=== PATIENT | male | born 1935 | race African-American/Black ===

== ENCOUNTER → 2016-06-29 | Outpatient (CLI) | payer MEDICARE, MEDICAID ==
[~2016-06-29] MED LIST: ALBU18HF2 IH; ALBU6.7H INH; AMLO10TA80 PO; ATOR40TA70 PO; BENA10TA3 PO; DULO60CA44 PO; ESOM40CA PO; FLUT1DIS IH; FURO20TA4 PO; IBUP-1510 PO; KLOR CON; LATA2.5D2 EACHEYE; MONT10TA24 PO; TAMS0.4C31 PO; TIOT18CA3 INH
[2016-06-29 10:39] LABS: BASOPHILS % 1.2 % (0.0-2.0); EOSINOPHILS % 3.1 % (0.0-5.0); HEMATOCRIT. 36.2 % (42.0-52.0); HEMOGLOBIN. 11.5 g/dL (14.0-18.0); LYMPHOCYTES % 21.1 % (20.0-50.0); MEAN CORPUSCULAR HEMOGLOBIN 27.5 pg (28.0-32.0); MEAN CORPUSCULAR VOLUME 86.5 fL (80.0-94.0); MEAN PLATELET VOLUME 7.7 fl (7.4-10.4); MONOCYTES % 10.7 % (2.0-8.0); NEUTROPHILS % 63.9 % (40.0-76.0); PLATELET 264 x1000/uL (130-400); RED BLOOD CELL COUNT 4.19 mill/uL (4.7-6.1); RED CELL DISTRIBUTION WIDTH 14.7 % (11.6-14.6)
[2016-06-29 11:22] LABS: CARBON DIOXIDE 31 mEq/L (21-32); CHLORIDE 101 mEq/L (98-107); HDL CHOLESTEROL 106 mg/dL (40-59); LDL CHOLESTEROL 112 mg/dL (5-100); T4 FREE 0.98 ng/dL (0.76-1.46)
[2016-06-29 11:36] LABS: VITAMIN B12 SERUM 405 pg/mL (211-911)
[2016-06-29 11:52] LABS: FOLIC ACID (FOLATE) SERUM > 20.00 ng/mL (>5.38)
[2016-06-29 13:36] LABS: PROSTRATE SPECIFIC AG TOTAL 2.47 ng/mL (0.0-4.0)
== END | disposition home or self-care (01) ==
LOC: EDBD → LAB 10:00
PROVIDERS: ATTEND Ophthalmology
DX: J44.9 Chronic obstructive pulmonary disease, unspecified (principal); E78.5 Hyperlipidemia, unspecified; N40.0 Benign prostatic hyperplasia without lower urinary tract symptoms; K21.9 Gastro-esophageal reflux disease without esophagitis; F03.90 Unspecified dementia, unspecified severity, without behavioral disturbance, psychotic disturbance, mood disturbance, and anxiety; R03.0 Elevated blood-pressure reading, without diagnosis of hypertension
CPT/HCPCS: 36415; 80053; 80061; 82306; 82607; 82746; 84153; 84439; 84443; 84481; 85025

== ENCOUNTER → 2016-07-02 | Outpatient (CLI) | payer MEDICARE, MEDICAID | END | disposition home or self-care (01) | LOC: RAD 08:47 | PROVIDERS: ATTEND Ophthalmology | DX: J44.9 Chronic obstructive pulmonary disease, unspecified (principal) | CPT/HCPCS: 71020 ==

== ENCOUNTER 2016-07-24 10:49 | Emergency (ER) | payer MEDICAID, MEDICARE ==
[~2016-07-24] VITALS: Ht 198.1 cm; Wt 90.0 kg
[2016-07-24] MEDS ORDERED: SODIUM CHLORIDE 0.9% 1,000 ML IV ONE (11:15)
[2016-07-24] MEDS ORDERED: CLONIDINE 0.1MG TABLET PO ONE (11:15)
[2016-07-24 12:04] LABS: BASOPHILS % 0.7 % (0.0-2.0); EOSINOPHILS % 4.9 % (0.0-5.0); HEMATOCRIT. 36.6 % (42.0-52.0); HEMOGLOBIN. 11.7 g/dL (14.0-18.0); LYMPHOCYTES % 25.2 % (20.0-50.0); MEAN CORPUSCULAR HEMOGLOBIN 27.5 pg (28.0-32.0); MEAN CORPUSCULAR VOLUME 85.9 fL (80.0-94.0); MONOCYTES % 11.5 % (2.0-8.0); NEUTROPHILS % 57.7 % (40.0-76.0); PLATELET 208 x1000/uL (130-400); RED BLOOD CELL COUNT 4.26 mill/uL (4.7-6.1); RED CELL DISTRIBUTION WIDTH 14.8 % (11.6-14.6)
[2016-07-24 12:20] LABS: ANION GAP 9; CALCIUM 8.7 mg/dL (8.5-10.1); CARBON DIOXIDE 31 mEq/L (21-32); CHLORIDE 103 mEq/L (98-107); INDEX HEMOLYSI 1 (1-3); INDEX ICTERIC 1 (1-4); INDEX LIPEMIC 1 (1-3); TROPONIN I < 0.02 ng/mL (0.00-0.04); UREA NITROGEN BLOOD 15 mg/dL (7-21); eGFR 47 mL/min (>60)
[2016-07-24 13:30] VITALS: BP 132/84
== END 2016-07-24 14:47 | disposition home or self-care (01) ==
LOC: ER 10:51
DX: I10 Essential (primary) hypertension (principal); R42 Dizziness and giddiness; J44.9 Chronic obstructive pulmonary disease, unspecified; Z87.891 Personal history of nicotine dependence; Z96.649 Presence of unspecified artificial hip joint
CPT/HCPCS: 36415; 70450; 71010; 80048; 84484; 85025; 93005; 96360; 99285; J7030